=== PATIENT | female | born 1985 | race Caucasian/White ===

== ENCOUNTER → 2018-04-29 | Emergency (ER) | payer OTHER ==
[~2018-04-29] VITALS: Ht 160 cm; Wt 96.2 kg
[~2018-04-29] MED LIST: ENDOMETRIN100 MG; PRENATAL + DHA1 EAC1
== END | disposition home or self-care (01) ==
LOC: ER 13:10
DX: O20.0 Threatened abortion (principal)

== ENCOUNTER 2018-08-06 11:26 | Outpatient (CLI) | payer OTHER | END 2018-08-06 12:24 | disposition home or self-care (01) | LOC: NST 11:26 | DX: Z34.82 Encounter for supervision of other normal pregnancy, second trimester (principal) ==

== ENCOUNTER 2018-09-10 11:51 | Outpatient (CLI) | payer OTHER | END 2018-09-10 14:20 | disposition home or self-care (01) | LOC: NST 11:51 | DX: Z34.83 Encounter for supervision of other normal pregnancy, third trimester (principal) ==

== ENCOUNTER 2018-09-24 11:24 | Outpatient (CLI) | payer OTHER | END 2018-09-24 12:18 | disposition home or self-care (01) | LOC: NST 11:24 | DX: Z34.83 Encounter for supervision of other normal pregnancy, third trimester (principal) ==

== ENCOUNTER → 2018-10-08 | Outpatient (CLI) | payer OTHER ==
[~2018-10-08] MED LIST changes: +IRON325 MG PO; +KETO10TA2 PO; +OXYC1TAB9 PO
== END | disposition home or self-care (01) ==
LOC: NST 14:25
DX: Z34.83 Encounter for supervision of other normal pregnancy, third trimester (principal)

== ENCOUNTER 2018-10-22 11:59 | Outpatient (CLI) | payer OTHER ==
[~2018-10-22 11:59] MED LIST changes: -IRON325 MG PO; -KETO10TA2 PO; -OXYC1TAB9 PO
== END 2018-10-22 13:28 | disposition home or self-care (01) ==
LOC: NST 11:59
DX: Z34.83 Encounter for supervision of other normal pregnancy, third trimester (principal)

== ENCOUNTER 2018-10-22 14:14 | Inpatient (IN) | payer OTHER ==
[~2018-10-22] VITALS: Ht 160 cm; Wt 3.2 kg
[2018-10-29] MEDS ORDERED: IRON325 MG PO (12:09)
[2018-11-08] MEDS ORDERED: OXYC1TAB9 PO ×2 (10:12)
[2018-11-08] MEDS ORDERED: KETO10TA2 PO ×2 (10:13)
== END 2018-11-08 14:10 | DRG 783 ==
LOC: O/R 10-29 13:15 → SURG-SUITE 11-05 08:53 → O/R 11-05 09:15 → OB/GYN 11-05 14:31
PROVIDERS: ADMIT Obstetrics & Gynecology Maternal & Fetal Medicine
PROC: 4A1HXCZ Monitoring of Products of Conception, Cardiac Rate, External Approach (ICD-10-PCS; 2018-11-05)
PROC: 4A033R1 Measurement of Arterial Saturation, Peripheral, Percutaneous Approach (ICD-10-PCS; 2018-11-05)
PROC: 0UB70ZZ Excision of Bilateral Fallopian Tubes, Open Approach (ICD-10-PCS; 2018-11-05)
PROC: 10D00Z1 Extraction of Products of Conception, Low, Open Approach (ICD-10-PCS; principal; 2018-11-05 09:15)
DX: O32.1XX1 Maternal care for breech presentation, fetus 1 (principal); O60.14X2 Preterm labor third trimester with preterm delivery third trimester, fetus 2; O32.2XX1 Maternal care for transverse and oblique lie, fetus 1; O30.093 Twin pregnancy, unable to determine number of placenta and number of amniotic sacs, third trimester; Z37.2 Twins, both liveborn; Z30.2 Encounter for sterilization; Z3A.36 36 weeks gestation of pregnancy; Z22.330 Carrier of Group B streptococcus

== ENCOUNTER 2018-10-31 10:48 | Outpatient (CLI) | payer OTHER ==
[~2018-10-31 10:48] MED LIST changes: +IRON325 MG PO
== END 2018-10-31 12:00 | disposition home or self-care (01) ==
LOC: NST 10:48
DX: Z34.83 Encounter for supervision of other normal pregnancy, third trimester (principal)

== ENCOUNTER 2019-04-25 19:12 | Emergency (ER) | payer OTHER ==
[~2019-04-25] VITALS: Ht 160 cm; Wt 86.2 kg
[~2019-04-25 19:12] MED LIST changes: +KETO10TA2 PO; +OXYC1TAB9 PO
== END 2019-04-25 22:41 | disposition home or self-care (01) ==
LOC: ER 19:12
DX: J11.1 Influenza due to unidentified influenza virus with other respiratory manifestations (principal)

== ENCOUNTER 2022-01-15 09:27 | Outpatient (CLI) | payer OTHER | END 2022-01-15 09:28 | disposition home or self-care (01) | LOC: LAB 09:27 | PROVIDERS: ATTEND Internal Medicine Gastroenterology | DX: E78.5 Hyperlipidemia, unspecified (principal); R10.9 Unspecified abdominal pain ==

== ENCOUNTER → 2022-01-15 | Outpatient (CLI) | payer OTHER | END | disposition home or self-care (01) | LOC: SONOGRAMA 08:32 → NUCLEAR 01-18 08:00 | PROVIDERS: ATTEND Internal Medicine Gastroenterology | DX: K80.20 Calculus of gallbladder without cholecystitis without obstruction (principal) ==

== ENCOUNTER 2022-01-18 07:12 | Outpatient (CLI) | payer OTHER | END 2022-01-18 07:13 | disposition home or self-care (01) | LOC: NUCLEAR 07:12 | PROVIDERS: ATTEND Internal Medicine Gastroenterology | DX: K80.12 Calculus of gallbladder with acute and chronic cholecystitis without obstruction (principal) | CPT/HCPCS: 78227; A9537; J2805 ==

== ENCOUNTER → 2023-05-15 07:00 | Outpatient (CLI) | payer OTHER ==
[2023-05-15 08:12] LABS: HEMATOCRIT 39.2 % (36.0-45.00); MEAN CELL VOLUME 88.7 fL (80.00-100.00); MEAN CORPUSCULAR HEMOGLOBIN 29.6 pg (27.00-32.0); MEAN CORPUSCULAR HGB CONC 33.3 g/dl (32.0-36.0); PLATELET COUNT 264 K/uL (150-450); RED BLOOD COUNT 4.41 M/uL (4.00-6.00); RED CELL DISTRIBUTION WIDTH 15.6 % (11.5-14.5)
[2023-05-15 09:23] LABS: ALBUMIN 3.5 gm/dL (3.4-5.0); BILIRUBIN TOTAL 0.48 mg/dL (0.3-1.2); CALCIUM 8.5 mg/dL (8.5-10.1); CHOL HDL RATIO 3.1 (0-5.0); CREATININE SERUM 0.68 mg/dL (0.55-1.02); GFR 97.36; GLOBULINA 3.8 G/DL (2.4-3.5); POTASSIUM 4.37 mEq/L (3.5-5.1); TOTAL PROTEIN 7.3 gm/dL (6.4-8.2); TSH 3.86 uIU/mL (0.358-3.74)
== END | disposition home or self-care (01) ==
LOC: LAB 07:00
PROVIDERS: ATTEND Internal Medicine Gastroenterology
DX: R10.9 Unspecified abdominal pain (principal); E03.9 Hypothyroidism, unspecified; E78.5 Hyperlipidemia, unspecified

== ENCOUNTER 2023-05-15 07:33 | Outpatient (CLI) | payer OTHER | END 2023-05-15 07:34 | disposition home or self-care (01) | LOC: NUCLEAR 07:33 | PROVIDERS: ATTEND Internal Medicine Gastroenterology | DX: R10.9 Unspecified abdominal pain (principal) ==

== ENCOUNTER 2023-05-15 11:31 | Outpatient (CLI) | payer OTHER | END 2023-05-15 11:39 | disposition home or self-care (01) | LOC: SONOGRAMA 11:31 | PROVIDERS: ATTEND Internal Medicine Gastroenterology | DX: R10.9 Unspecified abdominal pain (principal) ==